=== PATIENT | male | born 1980 | race Two or more races ===

== ENCOUNTER 2019-02-16 10:07 | Emergency (ER) | payer MEDICAID ==
[~2019-02-16] VITALS: Ht 165.1 cm; Wt 68.0 kg
[2019-02-16] MEDS ORDERED: VISCOUS LIDOCAINE 2% 15 ML UDC PO STA (10:29)
[2019-02-16] MEDS ORDERED: ONDANSETRON HCL 4MG/2ML INJ IV STA (10:29)
[2019-02-16] MEDS ORDERED: FAMOTIDINE 20MG/2ML VIAL IV STA (10:29)
[2019-02-16] MEDS ORDERED: MAGNESIUM/ALUMINUM HYDROXIDE/SIMETHICONE 30ML UDC PO STA (10:29)
[2019-02-16 11:14] LABS: BASOPHILS % 2.8 % (0.0-2.0); EOSINOPHILS % 1.7 % (0.0-5.0); HEMATOCRIT. 37.2 % (42.0-52.0); HEMOGLOBIN. 12.4 g/dL (14.0-18.0); LYMPHOCYTES % 10.1 % (20.0-50.0); MEAN CORPUSCULAR HEMOGLOBIN 30.9 pg (28.0-32.0); MEAN PLATELET VOLUME 10.2 fl (7.4-10.4); MONOCYTES % 12.7 % (2.0-8.0); NEUTROPHILS % 72.7 % (40.0-76.0); PLATELET 115 x1000/uL (130-400); RED CELL DISTRIBUTION WIDTH 13.3 % (11.6-14.6)
[2019-02-16 11:19] LABS: CHLORIDE 102 mEq/L (98-107)
[2019-02-16 11:24] LABS: CLARITY URINE CLEAR (CLEAR); COLOR URINE YELLOW (YELLOW); KETONES URINE 1+ (NEGATIVE); LEUKOCYTE ESTERASE URINE NEGATIVE (NEGATIVE); NITRITE URINE NEGATIVE (NEGATIVE); OCCULT BLOOD URINE NEGATIVE (NEGATIVE); PH URINE 6.5 (4.5-8.0); PROTEIN URINE 2+ (NEGATIVE); SPECIFIC GRAVITY URINE 1.048 (1.005-1.030)
[2019-02-16] MEDS ORDERED: KETOROLAC 15MG/ML VIAL IV ONE (14:15)
[2019-02-16] MEDS ORDERED: ACETAMINOPHEN 500MG TABLET PO ONE (14:15)
[2019-02-16 18:34] VITALS: BP 167/109
== END 2019-02-16 18:36 | disposition home or self-care (01) ==
LOC: ER 10:29 → EDBD 10:29 → ER 18:36
DX: R10.13 Epigastric pain (principal); I10 Essential (primary) hypertension
CPT/HCPCS: 36415; 71045; 80053; 81003; 83690; 84484; 85025; 93005; 96374; 96375; 99284; J1885; J2405; J3490